=== PATIENT | male | born 1945 | race African-American/Black ===

== ENCOUNTER 2022-11-02 11:20 | Observation (INO) ==
[2022-11-02 13:33] LABS: Basophils % 0.1 % (0.0-0.8); Eosinophils % 0.4 % (0.00-10.9); Hematocrit 40.8 VOL% (42.0-52.0); Hemoglobin 13.9 GM/DL (14.0-18.0); Immature Granulocytes % 0.6 %; Immature Granulocytes Absolute 0.06 #; Lymphocytes # 0.5 10*3/uL (1.4-4.0); Lymphocytes % 4.3 % (21.2-54.2); Mean Corpuscular HGB Conc 34.1 GM/DL (32-36); Mean Corpuscular Volume 88.5 FL (87-102); Mean Platelet Volume 9.3 FL (9.6-12.0); Monocytes % 9.6 % (1.7-12.7); Platelet Count 191 T/CUMM (130-400); Red Blood Count 4.61 MC/CUMM (3.8-5.5); Red Cell Distribution Width 13.8 % (9.3-17.3); White Blood Count 10.6 T/CUMM (4-12)
[2022-11-02 13:54] LABS: Albumin 3.8 G/DL (3.4-5.0); Bilirubin,Total 0.4 MG/DL (0.20-1.00); Osmolality,Calculated 282.1 MOS/KG (273-304); Potassium 4.7 MMOL/L (3.5-5.1); Total Protein 7.8 G/DL (6.4-8.2)
[2022-11-02] MEDS ORDERED: SODIUM CHLORIDE 0.9% 1,000 ML IV ONE (14:36)
[2022-11-02 15:58] LABS: Lymphocytes 5 % (20-55); Total Cells Counted 100
[2022-11-02] MEDS ORDERED: NICOTINE 7 MG/24 HR PATCH TRANSDERM PRN (16:11)
[2022-11-02 17:26] LABS: Bacteria,Urine Occasional /HPF (Few); Bilirubin,Urine Negative (Negative); Blood, Urine Large mg/dL (Negative); Glucose,Urine (UA) Negative (Negative); Ketones,Urine Negative (Negative); Mucus,Urine Occasional /LPF (Occasional); Nitrite,Urine Negative (Negative); Protein,Urine Negative (Negative); RBC,Urine 146 /HPF (0-4); Sperm,Urine Few /HPF (Negative); Squamous Epithelial Cell,Urine Occasional /HPF (0-10); Urine Appearance Clear (Clear); Urine Color Yellow (Yellow); Urine Specific Gravity 1.015 (1.001-1.035)
[2022-11-02 17:27] LABS: Urine Urobilinogen 0.2 eU/dL (<2.0)
[2022-11-02 17:36] LABS: PT Patient Result 11.4 SECS (10.1-12.1)
[2022-11-02] MEDS: TAMSULOSIN 0.4 MG CAPSULE PO SCH (20:33)
[2022-11-02] MEDS: DOCUSATE SODIUM 100 MG CAPSULE PO SCH (20:33)
[2022-11-02] MEDS: POLYETHYLENE GLYCOL POWDER 17 GM PACK PO SCH (20:33)
[2022-11-02] MEDS: SENNA 8.6 MG TABLET PO SCH (20:34)
[2022-11-02] MEDS: SODIUM CHLORIDE 0.9% 1,000 ML IV SCH (22:28)
[2022-11-02] MEDS: HEPARIN 5,000 UNIT/1 ML VIAL SUBCUT SCH (22:31)
[2022-11-03 04:58] LABS: Basophils % 0.1 % (0.0-0.8); Eosinophils # 0.1 10*3/uL (0.0-0.87); Eosinophils % 1.3 % (0.00-10.9); Hematocrit 33.9 VOL% (42.0-52.0); Hemoglobin 11.3 GM/DL (14.0-18.0); Immature Granulocytes % 0.4 %; Immature Granulocytes Absolute 0.03 #; Lymphocytes # 0.3 10*3/uL (1.4-4.0); Lymphocytes % 4.4 % (21.2-54.2); Mean Corpuscular HGB Conc 33.3 GM/DL (32-36); Mean Corpuscular Volume 89.4 FL (87-102); Mean Platelet Volume 9.7 FL (9.6-12.0); Monocytes # 1.1 10*3/uL (0.11-0.8); Monocytes % 14.2 % (1.7-12.7); Neutrophils % 79.6 % (38.7-73.9); Platelet Count 174 T/CUMM (130-400); Red Blood Count 3.79 MC/CUMM (3.8-5.5); Red Cell Distribution Width 13.6 % (9.3-17.3); White Blood Count 7.5 T/CUMM (4-12)
[2022-11-03 05:26] LABS: Albumin 2.9 G/DL (3.4-5.0); Bilirubin,Total 0.6 MG/DL (0.20-1.00); Calcium 8.5 MG/DL (8.5-10.1); Osmolality,Calculated 293.1 MOS/KG (273-304); Potassium 4.4 MMOL/L (3.5-5.1); Risk Ratio 3.02; Thyroid Stimulating Hormone 0.104 uIU/ml (0.358-3.74); Total Protein 6.4 G/DL (6.4-8.2)
[2022-11-03 05:41] LABS: Eosinophils 1 % (0-10); Hypochromia Slight; Lymphocytes 2 % (20-55); Microcytosis Slight; Platelet Estimate Adequate; Total Cells Counted 100
[2022-11-03] MEDS: HEPARIN 5,000 UNIT/1 ML VIAL SUBCUT SCH ×2 (06:23→17:40)
[2022-11-03] MEDS: SODIUM CHLORIDE 0.9% 1,000 ML IV SCH ×2 (06:24→17:12)
[2022-11-03] MEDS: DOCUSATE SODIUM 100 MG CAPSULE PO SCH ×2 (11:34→23:26)
[2022-11-03] MEDS: POLYETHYLENE GLYCOL POWDER 17 GM PACK PO SCH ×2 (11:35→23:26)
[2022-11-03 12:58] LABS: Ferritin 708.7 ng/mL (26-388)
[2022-11-03] MEDS ORDERED: HEPARIN DRIP 25,000 UNITS/500 ML PREMIX IV SCH (16:00)
[2022-11-03] MEDS: SODIUM CHLORIDE 0.45% 1,000 ML IV SCH (16:35)
[2022-11-03] MEDS: TAMSULOSIN 0.4 MG CAPSULE PO SCH (20:29)
[2022-11-03] MEDS: SENNA 8.6 MG TABLET PO SCH (23:31)
[2022-11-04 05:30] LABS: Basophils % 0.4 % (0.0-0.8); Eosinophils # 0.2 10*3/uL (0.0-0.87); Eosinophils % 2.8 % (0.00-10.9); Hematocrit 31.9 VOL% (42.0-52.0); Hemoglobin 10.7 GM/DL (14.0-18.0); Immature Granulocytes % 0.4 %; Immature Granulocytes Absolute 0.03 #; Lymphocytes # 0.9 10*3/uL (1.4-4.0); Lymphocytes % 12.6 % (21.2-54.2); Mean Corpuscular HGB Conc 33.5 GM/DL (32-36); Mean Corpuscular Volume 89.6 FL (87-102); Mean Platelet Volume 9.6 FL (9.6-12.0); Monocytes # 1.1 10*3/uL (0.11-0.8); Monocytes % 16.1 % (1.7-12.7); Neutrophils % 67.7 % (38.7-73.9); Platelet Count 174 T/CUMM (130-400); Red Blood Count 3.56 MC/CUMM (3.8-5.5); Red Cell Distribution Width 13.4 % (9.3-17.3); White Blood Count 6.7 T/CUMM (4-12)
[2022-11-04 05:52] LABS: Calcium 8.4 MG/DL (8.5-10.1); Osmolality,Calculated 282.1 MOS/KG (273-304); Potassium 3.7 MMOL/L (3.5-5.1)
[2022-11-04 05:55] LABS: Eosinophils 7 % (0-10); Lymphocytes 14 % (20-55); Total Cells Counted 100
[2022-11-04 05:56] LABS: Microcytosis Slight; Platelet Estimate Adequate
[2022-11-04] MEDS: POLYETHYLENE GLYCOL POWDER 17 GM PACK PO SCH ×2 (08:31→20:30)
[2022-11-04] MEDS: DOCUSATE SODIUM 100 MG CAPSULE PO SCH ×2 (08:31→20:30)
[2022-11-04] MEDS: SODIUM CHLORIDE 0.45% 1,000 ML IV SCH (08:32)
[2022-11-04] MEDS: TAMSULOSIN 0.4 MG CAPSULE PO SCH ×2 (11:24→20:31)
[2022-11-04 12:43] LABS: Mucus,Urine Occasional /LPF (Occasional); RBC,Urine 48 /HPF (0-4)
[2022-11-04 12:44] LABS: Bilirubin,Urine Negative (Negative); Blood, Urine Large mg/dL (Negative); Glucose,Urine (UA) Negative (Negative); Ketones,Urine Negative (Negative); Nitrite,Urine Negative (Negative); Protein,Urine Negative (Negative); Urine Appearance Clear (Clear); Urine Color Yellow (Yellow); Urine Specific Gravity 1.015 (1.001-1.035); Urine Urobilinogen 0.2 eU/dL (<2.0)
[2022-11-04] MEDS: RIVAROXABAN 15 MG TABLET PO SCH (17:25)
[2022-11-04] MEDS: amLODIPine 5 MG TABLET PO SCH (17:25)
[2022-11-04] MEDS: CEFUROXIME 500 MG TABLET PO SCH (17:25)
[2022-11-04] MEDS: SIMETHICONE CHEW 125 MG TABLET PO PRN (20:00)
[2022-11-04] MEDS: SENNA 8.6 MG TABLET PO SCH (20:32)
[2022-11-05 04:50] LABS: Basophils % 0.3 % (0.0-0.8); Eosinophils # 0.2 10*3/uL (0.0-0.87); Eosinophils % 2.7 % (0.00-10.9); Hematocrit 34.1 VOL% (42.0-52.0); Hemoglobin 11.2 GM/DL (14.0-18.0); Immature Granulocytes % 0.8 %; Immature Granulocytes Absolute 0.05 #; Lymphocytes # 0.7 10*3/uL (1.4-4.0); Lymphocytes % 10.4 % (21.2-54.2); Mean Corpuscular HGB Conc 32.8 GM/DL (32-36); Mean Corpuscular Volume 91.2 FL (87-102); Mean Platelet Volume 9.2 FL (9.6-12.0); Monocytes % 16.2 % (1.7-12.7); Neutrophils % 69.6 % (38.7-73.9); Platelet Count 198 T/CUMM (130-400); Red Blood Count 3.74 MC/CUMM (3.8-5.5); Red Cell Distribution Width 13.1 % (9.3-17.3); White Blood Count 6.4 T/CUMM (4-12)
[2022-11-05 05:01] LABS: Calcium 8.7 MG/DL (8.5-10.1); Osmolality,Calculated 279.3 MOS/KG (273-304); Potassium 3.6 MMOL/L (3.5-5.1)
[2022-11-05 05:18] LABS: Eosinophils 1 % (0-10); Hypochromia Slight; Lymphocytes 11 % (20-55); Platelet Estimate Adequate; Total Cells Counted 100
[2022-11-05] MEDS ORDERED: MAGNESIUM SULF RIDER 4 GM/100 ML PREMIX IV ONE (07:15)
[2022-11-05] MEDS: TAMSULOSIN 0.4 MG CAPSULE PO SCH (08:10)
[2022-11-05] MEDS: amLODIPine 5 MG TABLET PO SCH (08:10)
[2022-11-05] MEDS: POLYETHYLENE GLYCOL POWDER 17 GM PACK PO SCH (08:10)
[2022-11-05] MEDS: CEFUROXIME 500 MG TABLET PO SCH (08:10)
[2022-11-05] MEDS: DOCUSATE SODIUM 100 MG CAPSULE PO SCH (08:10)
[2022-11-05] MEDS: RIVAROXABAN 15 MG TABLET PO SCH (08:10)
[2022-11-05] MEDS: SIMETHICONE CHEW 125 MG TABLET PO PRN (08:19)
[2022-11-05 13:50] VITALS: BP 161/77
== END 2022-11-05 14:43 | disposition home or self-care (01) ==
LOC: N.EDINP 11:20 → N.ED 11:20 → SUATTDRO 15:45 → N.5E 17:24 → N.2E 11-03 10:45
PROVIDERS: ADMIT Hospitalist; ATTEND Family Medicine

== ENCOUNTER 2022-11-25 12:21 | Inpatient (IN) ==
[2022-11-25 13:38] LABS: Basophils % 0.3 % (0.0-0.8); Eosinophils % 0.3 % (0.00-10.9); Hematocrit 41.7 VOL% (42.0-52.0); Hemoglobin 13.6 GM/DL (14.0-18.0); Immature Granulocytes % 0.5 %; Immature Granulocytes Absolute 0.04 #; Lymphocytes # 0.7 10*3/uL (1.4-4.0); Mean Corpuscular HGB Conc 32.6 GM/DL (32-36); Mean Corpuscular Volume 91.2 FL (87-102); Mean Platelet Volume 8.8 FL (9.6-12.0); Monocytes # 0.7 10*3/uL (0.11-0.8); Monocytes % 9.3 % (1.7-12.7); Neutrophils % 80.6 % (38.7-73.9); Platelet Count 284 T/CUMM (130-400); Red Blood Count 4.57 MC/CUMM (3.8-5.5); White Blood Count 7.5 T/CUMM (4-12)
[2022-11-25 13:54] LABS: Albumin 3.9 G/DL (3.4-5.0); Bilirubin,Total 0.7 MG/DL (0.20-1.00); Calcium 9.5 MG/DL (8.5-10.1); Osmolality,Calculated 279.4 MOS/KG (273-304); Potassium 3.7 MMOL/L (3.5-5.1)
[2022-11-25 14:02] LABS: RBC,Urine 77011 /HPF (0-4)
[2022-11-25 14:05] LABS: Glucose,Urine (UA) 100 mg/dL (Negative); Protein,Urine >=300 mg/dL (Negative); Urine Appearance Cloudy (Clear); Urine Color Red (Yellow); Urine Specific Gravity < 1.005 (1.001-1.035); Urine pH > 9.0 (4.5-8.0)
[2022-11-25 14:06] LABS: Bilirubin,Urine Large mg/dL (Negative); Blood, Urine Large mg/dL (Negative); Ketones,Urine >160 mg/dL (Negative); Nitrite,Urine Positive (Negative); Urine Urobilinogen > 8.0 eU/dL (<2.0)
[2022-11-25] MEDS ORDERED: cefTRIAXone 1,000 MG in SODIUM CHLORIDE 0.9% 100 ML IV STA (14:11)
[2022-11-25] MEDS ORDERED: SODIUM CHLORIDE 0.9% 1,000 ML IV STA (14:11)
[2022-11-25] MEDS ORDERED: PROMETHAZINE 25 MG/1 ML VIAL IM PRN (14:54)
[2022-11-25] MEDS ORDERED: ONDANSETRON 4 MG/2 ML VIAL IV PRN (14:54)
[2022-11-25] MEDS ORDERED: ACETAMINOPHEN 325 MG TABLET PO PRN (14:54)
[2022-11-25] MEDS ORDERED: CALCIUM CARBONATE CHEW 500 MG TABLET PO PRN (15:54)
[2022-11-25] MEDS ORDERED: SIMETHICONE CHEW 125 MG TABLET PO PRN (15:54)
[2022-11-25] MEDS ORDERED: oxyCODONE/ACETAMINOPHEN 5-325 MG TABLET PO PRN (15:54)
[2022-11-25] MEDS ORDERED: diphenhydrAMINE 50 MG/1 ML VIAL IV PRN (15:54)
[2022-11-25] MEDS: SODIUM CHLORIDE 0.45% 1,000 ML IV SCH (18:21)
[2022-11-25] MEDS: TAMSULOSIN 0.4 MG CAPSULE PO SCH (21:27)
[2022-11-25] MEDS: DOCUSATE SODIUM 100 MG CAPSULE PO SCH (21:27)
[2022-11-26 06:10] LABS: Mucus,Urine Occasional /LPF (Occasional); RBC,Urine 29 /HPF (0-4)
[2022-11-26 06:11] LABS: Bilirubin,Urine Negative (Negative); Blood, Urine Moderate mg/dL (Negative); Glucose,Urine (UA) Negative (Negative); Ketones,Urine Negative (Negative); Nitrite,Urine Negative (Negative); Protein,Urine Negative (Negative); Urine Appearance Clear (Clear); Urine Color Straw (Yellow); Urine Specific Gravity 1.015 (1.001-1.035); Urine Urobilinogen 0.2 eU/dL (<2.0); Urine pH 5.5 (4.5-8.0)
[2022-11-26 06:11] LABS: Basophils % 0.6 % (0.0-0.8); Eosinophils # 0.1 10*3/uL (0.0-0.87); Eosinophils % 2.7 % (0.00-10.9); Hematocrit 32.2 VOL% (42.0-52.0); Hemoglobin 10.5 GM/DL (14.0-18.0); Immature Granulocytes % 0.4 %; Immature Granulocytes Absolute 0.02 #; Lymphocytes # 0.7 10*3/uL (1.4-4.0); Lymphocytes % 12.8 % (21.2-54.2); Mean Corpuscular HGB Conc 32.6 GM/DL (32-36); Mean Corpuscular Volume 90.4 FL (87-102); Mean Platelet Volume 8.9 FL (9.6-12.0); Monocytes # 0.7 10*3/uL (0.11-0.8); Monocytes % 12.8 % (1.7-12.7); Neutrophils % 70.7 % (38.7-73.9); Platelet Count 213 T/CUMM (130-400); Red Blood Count 3.56 MC/CUMM (3.8-5.5); Red Cell Distribution Width 13.9 % (9.3-17.3); White Blood Count 5.1 T/CUMM (4-12)
[2022-11-26 06:18] LABS: INR 1.1; PT Patient Result 11.9 SECS (10.1-12.1); Partial Thromboplastin Time 28.8 SECS (23.7-32.9)
[2022-11-26 06:28] LABS: Calcium 8.7 MG/DL (8.5-10.1); Osmolality,Calculated 279.3 MOS/KG (273-304); Potassium 3.5 MMOL/L (3.5-5.1)
[2022-11-26] MEDS ORDERED: LEVOFLOXACIN INJ 500 MG/100 ML PREMIX IV ONE (08:39)
[2022-11-26] MEDS: DOCUSATE SODIUM 100 MG CAPSULE PO SCH ×2 (08:40→21:03)
[2022-11-26] MEDS: amLODIPine 5 MG TABLET PO SCH (08:40)
[2022-11-26] MEDS: TAMSULOSIN 0.4 MG CAPSULE PO SCH ×2 (08:40→21:03)
[2022-11-26] MEDS ORDERED: cefTRIAXone 1,000 MG in SODIUM CHLORIDE 0.9% 100 ML IV SCH (15:00)
[2022-11-26] MEDS: SODIUM CHLORIDE 0.45% 1,000 ML IV SCH ×2 (17:00→18:20)
[2022-11-27] MEDS: SODIUM CHLORIDE 0.45% 1,000 ML IV SCH ×2 (04:59→14:52)
[2022-11-27 05:34] LABS: Basophils % 0.6 % (0.0-0.8); Eosinophils # 0.2 10*3/uL (0.0-0.87); Hematocrit 30.9 VOL% (42.0-52.0); Hemoglobin 10.4 GM/DL (14.0-18.0); Immature Granulocytes % 0.4 %; Immature Granulocytes Absolute 0.02 #; Lymphocytes # 0.9 10*3/uL (1.4-4.0); Lymphocytes % 18.4 % (21.2-54.2); Mean Corpuscular HGB Conc 33.7 GM/DL (32-36); Mean Corpuscular Volume 89.6 FL (87-102); Mean Platelet Volume 8.7 FL (9.6-12.0); Monocytes # 0.6 10*3/uL (0.11-0.8); Monocytes % 13.2 % (1.7-12.7); Neutrophils % 62.4 % (38.7-73.9); Platelet Count 190 T/CUMM (130-400); Red Blood Count 3.45 MC/CUMM (3.8-5.5); Red Cell Distribution Width 13.6 % (9.3-17.3); White Blood Count 4.6 T/CUMM (4-12)
[2022-11-27 05:53] LABS: Calcium 8.3 MG/DL (8.5-10.1); Osmolality,Calculated 277.3 MOS/KG (273-304); Potassium 3.4 MMOL/L (3.5-5.1)
[2022-11-27] MEDS ORDERED: SODIUM PHOSPHATE ENEMA 133 ML BOTTLE RECTAL ONE (06:00)
[2022-11-27] MEDS ORDERED: LEVOFLOXACIN INJ 500 MG/100 ML PREMIX IV ONE (06:00)
[2022-11-27] MEDS ORDERED: LACTATED RINGERS 1,000 ML IV SCH (07:30)
[2022-11-27] MEDS ORDERED: LIDOCAINE 2% TOP JELLY 20 ML VIAL INTRAURETH ONE (07:51)
[2022-11-27] MEDS ORDERED: LIDOCAINE 2% 5 ML VIAL ONE (07:55)
[2022-11-27] MEDS ORDERED: fentaNYL 100 MCG/2 ML VIAL ONE (07:55)
[2022-11-27] MEDS ORDERED: propofoL 200 MG/20 ML VIAL IV ONE (07:55)
[2022-11-27] MEDS ORDERED: MIDAZOLAM 2 MG/2 ML VIAL ONE (07:56)
[2022-11-27] MEDS ORDERED: NEOMYCIN/POLYMYXIN IRRIG SOLN 1 ML AMP BLADDERIRR ONE (08:15)
[2022-11-27] MEDS ORDERED: ePHEDrine 50 MG/ML VIAL ONE (08:29)
[2022-11-27] MEDS ORDERED: PHENYLEPHRINE 1 MG/10 ML SYRINGE IV ONE (08:48)
[2022-11-27] MEDS ORDERED: SEVOFLURANE 1 UNIT/15 MINUTE INH ONE (08:48)
[2022-11-27] MEDS: TAMSULOSIN 0.4 MG CAPSULE PO SCH (11:09)
[2022-11-27] MEDS: amLODIPine 5 MG TABLET PO SCH (11:09)
[2022-11-27] MEDS: DOCUSATE SODIUM 100 MG CAPSULE PO SCH (11:09)
[2022-11-27 11:43] VITALS: BP 158/82
[2022-11-27] MEDS ORDERED: POTASSIUM CHLORIDE 20 MEQ TABLET PO ONE (14:05)
== END 2022-11-27 16:25 | disposition home or self-care (01) | DRG 813 ==
LOC: N.ED 12:21 → N.EDINP 12:21 → N.3E 16:04
PROVIDERS: ADMIT Surgery; ATTEND Surgery
PROC: [UNRECOGNIZED PROCEDURE] (2022-11-27 08:16)